=== PATIENT | female | born 1950 | race Caucasian/White ===

== ENCOUNTER 2016-10-26 20:05 | Inpatient (IN) | payer BC ==
--- NOTE | 2016-10-26 20:18 | PDOC ---
[id number] No Limitations - History of Present Illness Timing/Duration: 4-6 hours Associated Symptoms: reports: denies symptoms. denies: chest pain, cough, malaise, nausea/vomiting, shortness of breath <Raissa More - Last Filed: 10/26/16 22:21> <Frantz Kirk - Last Filed: 11/03/16 06:24> - General Chief Complaint: Edema Stated Complaint: PCP SENT/SWOLLEN CALF Time Seen by Provider: 10/26/16 20:13 Past History - Travel Traveled outside of the country in the last 30 days: No Close contact w/someone who was outside of country & ill: No - Past Medical History Cardiac Disorders: Yes Diabetes: Yes - Surgical History Cholecystectomy: Yes - Psycho/Social/Smoking Cessation Hx Anxiety: No Suicidal Ideation: No Smoking History: Never smoked Hx Alcohol Use: No <Raissa More - Last Filed: 10/26/16 22:21> <Frantz Kirk - Last Filed: 11/03/16 06:24> - Past Medical History Allergies/Adverse Reactions: Allergies Allergy/AdvReac Type Severity Reaction Status Date / Time No Known Allergies Allergy Verified 10/26/16 20:11 Home Medications: Ambulatory Orders Insulin Pump Cartridge 10 units SQ ASDIR 08/28/11 Clopidogrel Bisulfate [Plavix -] 75 mg PO DAILY 10/27/16 Dulaglutide [Trulicity] 0.75 mg WEEKLY 10/27/16 Meloxicam 15 mg PO DAILY 10/27/16 Nebivolol HCl [Bystolic] 10 mg PO DAILY 10/27/16 Ramipril 10 mg PO BID 10/27/16 Simvastatin 40 mg PO DAILY 10/27/16 Tiotropium [place] [Spiriva] 1 puff IH PRN PRN 10/27/16 Apixaban [Eliquis -] 5 mg PO BID #70 tablet 10/28/16 Clindamycin [Cleocin -] 300 mg PO Q6HPO #24 capsule 10/28/16 Review of Systems - Review of Systems Able to Perform ROS?: Yes Comments:: 10/26/16 20:19 CONSTITUTIONAL: Absent: fever, chills, diaphoresis, generalized weakness, malaise, loss of appetite HEENT: Absent: rhinorrhea, nasal congestion, throat pain, throat swelling, difficulty swallowing, mouth swelling, ear pain, eye pain, visual Changes CARDIOVASCULAR: Absent: chest pain, loss of consciousness, palpitations, irregular heart rate, peripheral edema RESPIRATORY: Absent: cough, shortness of breath, dyspnea with exertion, orthopnea, wheezing, stridor, hemoptysis GASTROINTESTINAL: Absent: abdominal pain, abdominal distension, nausea, vomiting, diarrhea, constipation, melena, hematochezia GENITOURINARY: Absent: dysuria, frequency, urgency, hesitancy, hematuria, flank pain, genital pain MUSCULOSKELETAL: LLE ant mid region; +swelling/neg pain, denies calf pain Absent: myalgia, arthralgia, joint swelling SKIN: Absent: rash, itching, pallor HEMATOLOGIC/IMMUNOLOGIC: Absent: easy bleeding, easy bruising, lymphadenopathy, frequent infections ENDOCRINE: Absent: unexplained weight gain, unexplained weight loss, heat intolerance, cold intolerance NEUROLOGIC: Absent: headache, focal weakness or paresthesias, dizziness, unsteady gait, seizure, mental status changes, bladder or bowel incontinence PSYCHIATRIC: Absent: anxiety, depression, suicidal or homicidal ideation, hallucinations. 10/26/16 20:21 Is the patient limited Mohawk proficient: No <Raissa More - Last Filed: 10/26/16 22:21> *Physical Exam - Vital Signs Last Vital Signs Temp Pulse Resp BP Pulse Ox 98 F 80 18 158/76 97 10/26/16 20:07 10/26/16 20:07 10/26/16 20:07 10/26/16 20:07 10/26/16 20:07 - Physical Exam Comments: 10/26/16 20:21 GENERAL: Well developed, well nourished. Awake and alert. No acute distress. HEENT: Normocephalic, atraumatic. PERRLA, EOMI. No conjunctival pallor. Sclera are non- icteric. Moist mucous membranes. Oropharynx is clear. NECK: Supple. Full ROM. No JVD. Carotid pulses 2+ and symmetric, without bruits. No thyromegaly. No lymphadenopathy. CARDIOVASCULAR: Regular rate and rhythm. No murmurs, rubs, or gallops. Distal pulses are 2+ and symmetric. PULMONARY: No evidence of respiratory distress. Lungs clear to auscultation bilaterally. No wheezing, rales or rhonchi. ABDOMINAL: Soft. Non-tender. Non-distended. No rebound or guarding. No organomegaly. Normoactive bowel sounds. MUSCULOSKELETAL Normal range of motion at all joints. No bony deformities or tenderness. No CVA tenderness. EXTREMITIES: No cyanosis. No clubbing. No edema. No calf tenderness. SKIN: Warm and dry. Normal capillary refill. No rashes. No jaundice. NEUROLOGICAL: Alert, awake, appropriate. Cranial nerves 2-12 intact. No deficits to light touch and temperature in face, upper extremities and lower extremities. No motor deficits in the in face, upper extremities and lower extremities. Normoreflexic in the upper and lower extremities. Normal speech. Toes are down- going bilaterally. Gait is normal without ataxia. PSYCHIATRIC: Cooperative. Good eye contact. Appropriate mood and affect. <Raissa More - Last Filed: 10/26/16 22:21> - Vital Signs Last Vital Signs Temp Pulse Resp BP Pulse Ox 98.2 F 68 18 106/63 98 10/28/16 10:00 10/28/16 10:00 10/28/16 14:00 10/28/16 10:00 10/28/16 14:00 <Frantz Kirk - Last Filed: 11/03/16 06:24> ED Treatment Course - LABORATORY CBC & Chemistry Diagram: 10/26/16 21:25 10/26/16 21:25 <Raissa More - Last Filed: 10/26/16 22:21> - LABORATORY CBC & Chemistry Diagram: 10/28/16 06:50 10/26/16 21:25 - ADDITIONAL ORDERS Additional order review: 10/26/16 21:25 RBC 5.09 MCV 88.6 MCHC 33.8 RDW 13.7 MPV 9.2 D Neutrophils % 64.1 Lymphocytes % 22.0 Monocytes % 10.7 H Eosinophils % 3.0 Basophils % 0.2 - Medications Given in the ED: ED Medications Discontinued Medications Generic Name Dose Route Start Last Admin Trade Name Freq PRN Reason Stop Dose Admin Acetaminophen 650 mg 10/27/16 11:28 10/28/16 02:50 Tylenol - PO 650 mg Q6H PRN Administration FEVER OR PAIN Atorvastatin Calcium 20 mg 10/26/16 23:25 10/27/16 00:21 Lipitor - PO 10/26/16 23:26 20 mg ONCE ONE Administration Clindamycin HCl 300 mg 10/27/16 00:00 10/28/16 12:18 Cleocin - PO 300 mg Q6HPO CONCHITA Administration Clopidogrel Bisulfate 75 mg 10/27/16 10:00 10/28/16 09:31 Plavix - PO 75 mg DAILY CONCHITA Administration Enoxaparin Sodium 100 mg 10/26/16 22:09 10/26/16 22:20 Lovenox - SQ 10/26/16 22:10 Not Given ONCE ONE Enoxaparin Sodium 120 mg 10/26/16 22:15 10/26/16 22:19 Lovenox - SQ 10/26/16 22:16 120 mg ONCE ONE Administration Enoxaparin Sodium 120 mg 10/27/16 10:00 10/28/16 09:32 Lovenox - SQ 120 mg BID CONCHITA Administration Nebivolol 10 mg 10/27/16 10:00 10/28/16 09:32 Bystolic - PO 10 mg DAILY CONCHITA Administration Ramipril 20 mg 10/27/16 10:00 10/28/16 09:31 Altace - PO 20 mg DAILY CONCHITA Administration <Frantz Kirk - Last Filed: 11/03/16 06:24> Medical Decision Making - Medical Decision Making 11/03/16 06:24 ED Attending note: I was available, involved in the case with the mid level provider as needed and in a limited capacity. <Frantz Kirk - Last Filed: 11/03/16 06:24> *DC/Admit/Observation/Transfer - Discharge Dispostion Admit: Yes <Raissa More - Last Filed: 10/26/16 22:21> <Frantz Kirk - Last Filed: 11/03/16 06:24> Diagnosis at time of Disposition: Deep vein thrombosis (DVT) - Discharge Dispostion Disposition: HOME - Prescriptions - Referrals Progress Note - Progress Note Progress Note: 66-year-old female with a past medical history complaining of left lower leg swelling/anterior mid erythema but denies any pain. Patient denies nausea/ vomiting, fever/chills, headache, dizziness, lightheadedness, chest pain, shortness of breath, abdominal pains, extremity numbness or tingling sensation. Patient noticed the redness and swelling 8 hours ago. Patient spoke to her PMD who referred her to the emergency department. 2035hrs\; Spoke to DR. De Jesus; states to admit to hospitalist if pt is in severe pain or +DVT 2107hrs: Spoke to Dr. 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 Daigle/hospitalist/ will admit 2216hrs: Dr. De Jesus notified <Raissa More - Last Filed: 10/26/16 22:21>
--- NOTE | 2016-10-26 20:23 | PDOC ---
[id number] 97 10/26/16 20:07 10/26/16 20:07 10/26/16 20:07 10/26/16 20:07 10/26/16 20:07 - Physical Exam Comments: 10/26/16 20:23 The patient was examined by [CITLALY More] under my direct supervision. I personally evaluated the patient. I concur with the above findings and the plan of care. ED Treatment Course - LABORATORY CBC & Chemistry Diagram: 10/28/16 06:50 10/26/16 21:25 *DC/Admit/Observation/Transfer Diagnosis at time of Disposition: Deep vein thrombosis (DVT) - Discharge Dispostion Disposition: HOME - Prescriptions
[2016-10-26 21:38] LABS: BASOPHIL 0.2 % (0-2.0); MCH 29.9 pg (25.7-33.7); MCHC 33.8 g/dl (32.0-36.0); MEAN CELL VOLUME 88.6 fl (80-96); MEAN PLT VOLUME 9.2 fl (7.5-11.1); NEUTROPHILS 64.1 % (42.8-82.8); PLATELET COUNT 178 K/MM3 (134-434); RDW 13.7 % (11.6-15.6); WHITE BLOOD COUNT 9.4 K/mm3 (4.0-10.0)
[2016-10-26 21:48] LABS: INR 1.06 (0.82-1.09); PROTHROMBIN TIME (PATIENT) 11.7 SEC (9.98-11.88)
[2016-10-26 21:59] LABS: ALBUMIN 3.5 g/dl (3.4-5.0); ALK PHOS 82 U/L (45-117); ANION GAP 6 (8-16); BILIRUBIN,TOTAL 0.3 mg/dL (0.2-1.0); CALCIUM 8.4 mg/dL (8.5-10.1); CO2 31 mmol/L (21-32); CREATININE 0.7 mg/dL (0.55-1.02); GLUCOSE,RANDOM 132 mg/dL (74-106); SGOT/AST 11 U/L (15-37); SGPT/ALT 17 U/L (12-78); TOT PROT 6.8 g/dl (6.4-8.2)
--- NOTE | 2016-10-26 22:10 | PN ---
<Reginald Daigle - Last Filed: 10/26/16 22:09> Teaching Attending Note Name of Resident: Denton Guadalupe ATTENDING PHYSICIAN STATEMENT I saw and evaluated the patient. I reviewed the resident's note and discussed the case with the resident. I agree with the resident's findings and plan as documented. SUBJECTIVE: OBJECTIVE: ASSESSMENT AND PLAN: <GemmaPilo - Last Filed: 10/26/16 23:34> Teaching Attending Note ATTENDING PHYSICIAN STATEMENT I saw and evaluated the patient. I reviewed the resident's note and discussed the case with the resident. I agree with the resident's findings and plan as documented. Imaging data and chart reviewed. SUBJECTIVE: 66-year-old female who has a significant past medical history of diabetes, hypertension, and hyperlipidemia who presented with left lower extremity swelling and erythema for 8 hours. The patient described the pain as burning and itchy in sensation. The patient reported that her pain is exacerbated by palpation becoming a 10/10 in severity. The patient stated that at baseline her lower left extremity is swollen secondary to a left ankle fracture 3 years ago. The patient denied any recent injuries or recent travel. OBJECTIVE: Vital Signs: Last Vital Signs Temp Pulse Resp BP Pulse Ox 98 F 80 18 158/76 98 10/26/16 20:07 10/26/16 20:07 10/26/16 20:07 10/26/16 20:07 10/26/16 20:29 Physical Exam: GEN: NAD HEENT: NCAT, PERRL CARD: RRR, S1 S2 RESP: CTAB ABD: NT, BWS x4 EXT: - (+)Lower left extremity non pitting edema 3x5 cm edema erythema and warmth also noted behind her left ankle Labs: CBCD WBC 9.4 K/mm3 (4.0-10.0) 10/26/16 21:25 RBC 5.09 M/mm3 (3.60-5.2) 10/26/16 21:25 Hgb 15.2 GM/dL (10.7-15.3) 10/26/16 21:25 Hct 45.1 % (32.4-45.2) 10/26/16 21:25 MCV 88.6 fl (80-96) 10/26/16 21:25 MCHC 33.8 g/dl (32.0-36.0) 10/26/16 21:25 RDW 13.7 % (11.6-15.6) 10/26/16 21:25 Plt Count 178 K/MM3 (134-434) 10/26/16 21:25 MPV 9.2 fl (7.5-11.1) D 10/26/16 21:25 CMP Sodium 141 mmol/L (136-145) 10/26/16 21:25 Potassium 3.9 mmol/L (3.5-5.1) 10/26/16 21:25 Chloride 104 mmol/L (98-107) 10/26/16 21:25 Carbon Dioxide 31 mmol/L (21-32) 10/26/16 21:25 Anion Gap 6 (8-16) L 10/26/16 21:25 BUN 21 mg/dL (7-18) H 10/26/16 21:25 Creatinine 0.7 mg/dL (0.55-1.02) 10/26/16 21:25 Creat Clearance w eGFR > 60 (>60) 10/26/16 21:25 Calcium 8.4 mg/dL (8.5-10.1) L 10/26/16 21:25 Total Bilirubin 0.3 mg/dL (0.2-1.0) 10/26/16 21:25 AST 11 U/L (15-37) L 10/26/16 21:25 ALT 17 U/L (12-78) 10/26/16 21:25 Alkaline Phosphatase 82 U/L (45-117) 10/26/16 21:25 Total Protein 6.8 g/dl (6.4-8.2) 10/26/16 21:25 Albumin 3.5 g/dl (3.4-5.0) 10/26/16 21:25 ASSESSMENT AND PLAN: 66-year-old female who has a past medical history of diabetes who presented with left lower extremity swelling and erythema. Found to have a right popliteal DVT 1. DVT- unprovoked -Continue lovenox 120 Q12H -Can consider Eliquis outpatient if insurance allows 2. Lower left extremity cellulitis -Clindomyocin 3. CAD -Continue SERENE -Continue Plavix -Continue beta vin 4. Hyperlipidemia -Continue with statin 5. Right knee pain-arthritis -Would hold Meloxicam 6. Diabetes -Continue insulin pump -Finger sticks Admit to observation Documentation prepared by Pilo Menendez, acting as medical collections representative for Dr. Regina Daigle MD.
[2016-10-26] MEDS ORDERED: ENOXAPARIN NA (PORCINE) 40 MG/0.4 ML DISP.SYRIN SQ ONE (22:15)
[2016-10-26] MEDS: ENOXAPARIN NA (PORCINE) 100 MG/1 ML DISP.SYRIN SQ ONE ×2 (22:19→22:20)
[2016-10-26] MEDS ORDERED: ENOXAPARIN NA (PORCINE) 100 MG/1 ML DISP.SYRIN SQ ONE (22:24)
[2016-10-26] MEDS ORDERED: ENOXAPARIN NA (PORCINE) 30 MG/0.3 ML DISP.SYRIN SQ ONE (22:24)
[2016-10-26] MEDS ORDERED: ATORVASTATIN CA 20 MG TABLET (FP) PO ONE (23:25)
--- NOTE | 2016-10-26 23:28 | HP ---
CHIEF COMPLAINT: leg swelling and pain PCP: Dr. Matti De Jesus (PCP); Dr. King (cardio); Dr. Schmidt (endocrine) HISTORY OF PRESENT ILLNESS: 66 y/o F w/PMH of HTN, HLD, CAD s/p stents x2, DM (on insulin pump), hx of cervical ca s/p hysterectomy, presents to ER with LLE swelling and pain since this morning. Pt called Dr. De Jesus and he told her to come to ER. She states pain and redness in LLE started all of a sudden this AM. Pain is 10/10 when palpated. She denies any travel history or extended periods of inactivity. 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 She denies any CP, SOB, abd pain, diarrhea, dysuria, palpitations. She denies any N/V/F/C currently. She also denies any trauma to her legs or any cuts or wounds on her legs. 3 months ago pt had a some burning pain in LLE and got an U /S done at her workplace office which she states was negative and was told to f/ u with a vascular surgeon but she has not seen one since. She felt somewhat light-headed earlier today when trying to get up while in the ER but states she has not eaten or drank much today. ER course was notable for: (1) U/S duplex B/L LE (2) Lovenox (3) Recent Travel: denies PAST MEDICAL HISTORY: DM, HTN, HLD, CAD (s/p 2 stents 2010, 2012), cervical ca. PAST SURGICAL HISTORY: cardiac stents x2 2010, 2012; cholecystectomy (10+ years ago); hysterectomy; L adrenalectomy Social History: Smoking: former smoker - smoked from ages [age] Alcohol: denies Drugs: denies Family History: Mother: DM Older brother: Cancer (unknown type) Allergies Penicillin as a child, does not know reaction HOME MEDICATIONS: Home Medications Medication Instructions Recorded Insulin Pump Cartridge 10 units SQ ASDIR 08/28/11 REVIEW OF SYSTEMS CONSTITUTIONAL: Absent: fever, chills, diaphoresis, generalized weakness, malaise, loss of appetite, weight change HEENT: Absent: rhinorrhea, nasal congestion, throat pain, throat swelling, difficulty swallowing, mouth swelling, ear pain, eye pain, visual changes CARDIOVASCULAR: Absent: chest pain, syncope, palpitations, irregular heart rate, lightheadedness , peripheral edema RESPIRATORY: Absent: cough, shortness of breath, dyspnea with exertion, orthopnea, wheezing, stridor, hemoptysis GASTROINTESTINAL: Absent: abdominal pain, abdominal distension, nausea, vomiting, diarrhea, constipation, melena, hematochezia GENITOURINARY: Absent: dysuria, frequency, urgency, hesitancy, hematuria, flank pain, genital pain MUSCULOSKELETAL: Absent: myalgia, arthralgia, joint swelling, back pain, neck pain SKIN: LLE redness, swelling Absent: rash, itching, pallor HEMATOLOGIC/IMMUNOLOGIC: Absent: easy bleeding, easy bruising, lymphadenopathy, frequent infections ENDOCRINE: Absent: unexplained weight gain, unexplained weight loss, heat intolerance, cold intolerance NEUROLOGIC: Absent: headache, focal weakness or paresthesias, dizziness, unsteady gait, seizure, mental status changes, bladder or bowel incontinence PSYCHIATRIC: Absent: anxiety, depression, suicidal or homicidal ideation, hallucinations. PHYSICAL EXAMINATION Vital Signs - 24 hr 10/26/16 10/26/16 10/26/16 20:07 20:29 22:41 Temperature 98 F 98.3 F Pulse Rate 80 Pulse Rate [ 87 Left Radial] Respiratory 18 20 Rate Blood Pressure 158/76 Blood Pressure 140/70 [Left Arm] O2 Sat by Pulse 97 98 98 Oximetry (%) GENERAL: Awake, alert, and fully oriented, in no acute distress. HEAD: Normal with no signs of trauma. EYES: extraocular movements intact, sclera anicteric, conjunctiva clear. No lid lag. EARS, NOSE, THROAT: Ears normal, nares patent, Moist mucous membranes. NECK: Normal range of motion LUNGS: Breath sounds equal, clear to auscultation bilaterally. No wheezes, and no crackles. No accessory muscle use. HEART: Distant heart sounds, Regular rate and rhythm, normal S1 and S2 without murmur, rub or gallop. ABDOMEN: Soft, obese, nontender, not distended, normoactive bowel sounds, no guarding, no rebound, no masses. No hepatomegaly or splenomegaly. LOWER EXTREMITIES: LLE redness from mid tibia/mid calf down to distal tibia. Tender to palpation. L calf soreness with palpation. B/L non-pitting edema. RLE no tenderness NEUROLOGICAL: Normal speech. Gait not observed. PSYCHIATRIC: Cooperative. Good eye contact. Appropriate mood and affect. SKIN: Warm, dry, normal turgor, LLE redness from mid tibia/mid calf down to distal tibia. Laboratory Results - last 24 hr 10/26/16 10/26/16 10/26/16 21:25 21:25 21:25 WBC 9.4 RBC 5.09 Hgb 15.2 Hct 45.1 MCV 88.6 MCHC 33.8 RDW 13.7 Plt Count 178 MPV 9.2 D Neutrophils % 64.1 Lymphocytes % 22.0 Monocytes % 10.7 H Eosinophils % 3.0 Basophils % 0.2 INR 1.06 Sodium 141 Potassium 3.9 Chloride 104 Carbon Dioxide 31 Anion Gap 6 L BUN 21 H Creatinine 0.7 Creat Clearance w eGFR > 60 Random Glucose 132 H D Calcium 8.4 L Total Bilirubin 0.3 AST 11 L ALT 17 Alkaline Phosphatase 82 Total Protein 6.8 Albumin 3.5 Imaging Duplex U/S B/L LE: +DVT R popliteal as per prelim report ASSESSMENT/PLAN: 66 y/o F w/PMH of HTN, HLD, CAD s/p stents x2, DM (on insulin pump), hx of cervical ca s/p hysterectomy, presents to ER with LLE swelling and pain since this morning. Found to have R popliteal DVT. -R popliteal DVT, unprovoked -U/S B/L LE: prelim read: +DVT R popliteal -lovenox 120 mg SQ bid -eliquis as outpatient if covered by insurance -LLE cellulitis -clinda 300mg PO q6h -DM -c/w insulin pump from home -BGMs ACHS -HTN -c/w bystolic 10 mg -c/w ramipril 20 mg qd -CAD -atorvastatin [address] of simvastatin 40 mg qhs -c/w clopidogrel 75 mg qd -FEN -no fluids -electrolytes wnl -sodium controlled diabetic diet -Dispo: -monitor in obs, if eliquis approved send home w/eliquis and PO abx for LLE cellulitis Visit type - Emergency Visit Emergency Visit: Yes ED Registration Date: 10/26/16 Care time: The patient presented to the Emergency Department on the above date and was hospitalized for further evaluation of their emergent condition. - New Patient This patient is new to me today: Yes Date on this admission: 10/29/16 - Critical Care Critical Care patient: No
[2016-10-27] MEDS: CLINDAMYCIN HCL 150 MG CAPSULE (FP) PO SCH ×5 (00:22→23:24)
[2016-10-27 01:05] VITALS: BMI 41.3
[2016-10-27 08:54] LABS: MCH 29.8 pg (25.7-33.7); MCHC 33.2 g/dl (32.0-36.0); MEAN CELL VOLUME 89.7 fl (80-96); MEAN PLT VOLUME 9.1 fl (7.5-11.1); PLATELET COUNT 157 K/MM3 (134-434); RDW 13.3 % (11.6-15.6); WHITE BLOOD COUNT 7.7 K/mm3 (4.0-10.0)
--- NOTE | 2016-10-27 09:05 | PN ---
Progress Note, Physician - Current Medication List Current Medications: Active Medications Clindamycin HCl (Cleocin -) 300 mg PO Q6HPO [facility] Last Admin: 10/27/16 06:14 Dose: 300 mg Clopidogrel Bisulfate (Plavix -) 75 mg PO DAILY [facility] Enoxaparin Sodium (Lovenox -) 120 mg SQ BID [facility] Nebivolol (Bystolic -) 10 mg PO DAILY [facility] Ramipril (Altace -) 20 mg PO DAILY [facility] - Objective Vital Signs: Vital Signs Temperature 97.8 F 10/27/16 06:14 Pulse Rate 71 10/27/16 06:14 Respiratory Rate 20 10/27/16 06:14 Blood Pressure 106/42 10/27/16 06:14 O2 Sat by Pulse Oximetry (%) 94 L 10/27/16 01:14 Eyes: Yes: WNL, Conjunctiva Clear HENT: Yes: WNL, Atraumatic, Normocephalic Neck: Yes: WNL, Supple, Trachea Midline Cardiovascular: Yes: WNL, Regular Rate and Rhythm Respiratory: Yes: WNL, Regular, CTA Bilaterally Gastrointestinal: Yes: WNL, Normal Bowel Sounds Musculoskeletal: Yes: WNL Extremities: Yes: Erythema (right lower leg; tenderness of right lower leg) Edema: No Integumentary: Yes: WNL Neurological: Yes: WNL, Alert, Oriented ...Motor Strength: WNL Psychiatric: Yes: WNL Labs: CBC, BMP 10/27/16 06:50 INR, PTT INR 1.06 (0.82-1.09) 10/26/16 21:25 Impression/Plan Impression/Plan: 66 year old woman DM, HTN, HLD, CAD (s/p 2 stents 2010, 2011), cervical ca admitted for DVT DVT -started on full dose lovenox -call insurance company to get prior authorization for NOAC if possible -has history of cervical CA, will call [employer]CH[employer] to get better history as recurrence might be cause for DVT Cellulitis -erythema improved overnight -cont clindamycin Visit type - Emergency Visit Emergency Visit: Yes ED Registration Date: 10/26/16 Care time: The patient presented to the Emergency Department on the above date and was hospitalized for further evaluation of their emergent condition. - New Patient This patient is new to me today: Yes Date on this admission: 10/27/16 - Critical Care Critical Care patient: No
[2016-10-27] MEDS ORDERED: ACETAMINOPHEN 650 MG/20.3 ML ORAL SOLUTION (CUPS) PO PRN (09:10)
[2016-10-27 09:20] LABS: INR 1.12 (0.82-1.09); PROTHROMBIN TIME (PATIENT) 12.4 SEC (9.98-11.88)
[2016-10-27] MEDS ORDERED: PT OWN MED DRAWER 7, Y5N ONE (09:25)
[2016-10-27] MEDS: CLOPIDOGREL BISULFATE 75 MG TABLET (FP) PO SCH (09:27)
[2016-10-27] MEDS: RAMIPRIL 5 MG CAPSULE (FP) PO SCH (09:27)
[2016-10-27] MEDS: NEBIVOLOL 10 MG TABLET (FP) PO SCH (09:28)
--- NOTE | 2016-10-27 11:33 | EKG ---
Test Reason : Blood Pressure : / mmHG Vent. Rate : 090 BPM Atrial Rate : 090 BPM P-R Int : 192 ms QRS Dur : 090 ms QT Int : 364 ms P-R-T Axes : 051 005 019 degrees QTc Int : 445 ms NORMAL SINUS RHYTHM INFERIOR INFARCT , AGE UNDETERMINED CANNOT RULE OUT ANTERIOR INFARCT , AGE UNDETERMINED ABNORMAL ECG WHEN COMPARED WITH ECG OF 28-AUG-2011 09:14, NO SIGNIFICANT CHANGE WAS FOUND Confirmed by TARIK GILLESPIE MD ([id number]) on 10/27/2016 11:33:11 AM Referred By: Confirmed By:TARIK GILLESPIE MD
[2016-10-27] MEDS: ACETAMINOPHEN 325 MG TABLET (FP) PO PRN (11:45)
[2016-10-27] MEDS: ENOXAPARIN NA (PORCINE) 120 MG/0.8 ML DISP.SYRIN SQ SCH ×2 (12:00→21:43)
[2016-10-28] MEDS: ACETAMINOPHEN 325 MG TABLET (FP) PO PRN (02:50)
[2016-10-28] MEDS: CLINDAMYCIN HCL 150 MG CAPSULE (FP) PO SCH ×2 (06:23→12:18)
[2016-10-28 08:43] LABS: MCH 29.6 pg (25.7-33.7); MCHC 33.6 g/dl (32.0-36.0); MEAN PLT VOLUME 9.4 fl (7.5-11.1); PLATELET COUNT 183 K/MM3 (134-434); RDW 13.3 % (11.6-15.6); WHITE BLOOD COUNT 8.1 K/mm3 (4.0-10.0)
[2016-10-28] MEDS ORDERED: PT OWN MED DRAWER 7, Y5N ONE (09:19)
[2016-10-28] MEDS: CLOPIDOGREL BISULFATE 75 MG TABLET (FP) PO SCH (09:31)
[2016-10-28] MEDS: RAMIPRIL 5 MG CAPSULE (FP) PO SCH (09:31)
[2016-10-28] MEDS: ENOXAPARIN NA (PORCINE) 120 MG/0.8 ML DISP.SYRIN SQ SCH (09:32)
[2016-10-28] MEDS: NEBIVOLOL 10 MG TABLET (FP) PO SCH (09:32)
--- NOTE | 2016-10-28 10:13 | PN ---
Physical Exam: SUBJECTIVE: Patient seen and examined OBJECTIVE: Vital Signs Period Temp Pulse Resp BP Sys/Bustos Pulse Ox Last 24 Hr 98.4 F-98.9 F 62-70 18-20 116-123/60-73 93-95 GENERAL: The patient is awake, alert, and fully oriented, in no acute distress. HEAD: Normal with no signs of trauma. EYES: PERRL, extraocular movements intact, sclera anicteric, conjunctiva clear. No ptosis. ENT: Ears normal, nares patent, oropharynx clear without exudates, moist mucous membranes. NECK: Trachea midline, full range of motion, supple. LUNGS: Breath sounds equal, clear to auscultation bilaterally, no wheezes, no crackles, no accessory muscle use. HEART: Regular rate and rhythm, S1, S2 without murmur, rub or gallop. ABDOMEN: Soft, nontender, nondistended, normoactive bowel sounds, no guarding, no rebound, no hepatosplenomegaly, no masses. EXTREMITIES: 2+ pulses, warm, well-perfused, no edema. NEUROLOGICAL: Cranial nerves II through XII grossly intact. Normal speech, gait not observed. PSYCH: Normal mood, normal affect. SKIN: Warm, dry, normal turgor, no rashes or lesions noted Laboratory Results - last 24 hr 10/27/16 10/27/16 10/27/16 11:49 17:21 21:12 WBC RBC Hgb Hct MCV MCHC RDW Plt Count MPV PTT (Actin FS) POC Glucometer 129 103 111 10/28/16 10/28/16 10/28/16 05:39 06:50 06:50 WBC 8.1 RBC 5.25 H Hgb 15.5 H Hct 46.2 H MCV 88.0 MCHC 33.6 RDW 13.3 Plt Count 183 MPV 9.4 PTT (Actin FS) 36.5 H POC Glucometer 120 Active Medications Generic Name Dose Route Start Last Admin Trade Name Freq PRN Reason Stop Dose Admin Acetaminophen 650 mg 10/27/16 11:28 10/28/16 02:50 Tylenol - PO 650 mg Q6H PRN Administration FEVER OR PAIN Clindamycin HCl 300 mg 10/27/16 00:00 10/28/16 06:23 Cleocin - PO 300 mg Q6HPO CONCHITA Administration Clopidogrel Bisulfate 75 mg 10/27/16 10:00 10/28/16 09:31 Plavix - PO 75 mg DAILY CONCHITA Administration Enoxaparin Sodium 120 mg 10/27/16 10:00 10/28/16 09:32 Lovenox - SQ 120 mg BID CONCHITA Administration Nebivolol 10 mg 10/27/16 10:00 10/28/16 09:32 Bystolic - PO 10 mg DAILY CONCHITA Administration Ramipril 20 mg 10/27/16 10:00 10/28/16 09:31 Altace - PO 20 mg DAILY CONCHITA Administration ASSESSMENT/PLAN:
[2016-10-28 10:51] VITALS: BP 106/63; PULSE 68; TEMP 98.2
--- NOTE | 2016-10-28 14:11 | DS ---
Physical Examination Vital Signs: Vital Signs Temperature 98.2 F 10/28/16 10:00 Pulse Rate 68 10/28/16 10:00 Respiratory Rate 18 10/28/16 10:00 Blood Pressure 106/63 10/28/16 10:00 O2 Sat by Pulse Oximetry (%) 93 L 10/28/16 06:56 Labs: CBC, BMP 10/28/16 06:50 Discharge Summary Reason For Visit: DVT Hospital Course: 66 y/o F w/PMH of HTN, HLD, CAD s/p stents x2, DM (on insulin pump), hx of cervical ca s/p hysterectomy, presents to ER with LLE swelling and pain since this morning. Pt called Dr. De Jesus and he told her to come to ER. She states pain and redness in LLE started all of a sudden this AM. Pain is 10/10 when palpated. She denies any travel history or extended periods of inactivity. 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 She denies any CP, SOB, abd pain, diarrhea, dysuria, palpitations. She denies any N/V/F/C currently. She also denies any trauma to her legs or any cuts or wounds on her legs. -Pt was found to have DVT on sonogram and was admitted to medicine service -was treated with full dose lovenox during hospital stay -is being discharged on eliquis for full dose anticoagulation -has cellulitis on LLE and will be discharged on PO clindamycin I spent greater than 40 minutes preparing this discharge - Instructions Referrals: Matti De eJsus MD [Primary Care Provider] - 1 Week - Home Medications Comprehensive Discharge Medication List: Ambulatory Orders Insulin Pump Cartridge 10 units SQ ASDIR 08/28/11 Clopidogrel Bisulfate [Plavix -] 75 mg PO DAILY 10/27/16 Dulaglutide [Trulicity] 0.75 mg WEEKLY 10/27/16 Meloxicam 15 mg PO DAILY 10/27/16 Nebivolol HCl [Bystolic] 10 mg PO DAILY 10/27/16 Ramipril 10 mg PO BID 10/27/16 Simvastatin 40 mg PO DAILY 10/27/16 Tiotropium [place] [Spiriva] 1 puff IH PRN PRN 10/27/16 Apixaban [Eliquis -] 5 mg PO BID #70 tablet 10/28/16 This patient is new to me today: No Emergency Visit: Yes ED Registration Date: 10/26/16 Care time: The patient presented to the Emergency Department on the above date and was hospitalized for further evaluation of their emergent condition. Critical Care patient: No - Discharge Referral Referred to [facility] Med P.C.: No
== END 2016-10-28 14:21 | disposition home or self-care (01) | DRG 300 ==
LOC: JER 20:05 → JERBED 22:21 → J5S 23:08
PROVIDERS: ADMIT Internal Medicine; ATTEND Internal Medicine
DX: I82.431 Acute embolism and thrombosis of right popliteal vein (principal); L03.116 Cellulitis of left lower limb; E11.9 Type 2 diabetes mellitus without complications; I10 Essential (primary) hypertension; I25.10 Atherosclerotic heart disease of native coronary artery without angina pectoris; Z98.61 Coronary angioplasty status; E78.5 Hyperlipidemia, unspecified; Z79.4 Long term (current) use of insulin
CPT/HCPCS: 36415; 71020-TC; 80053; 85025; 85027; 85610; 85730; 93005; 93010; 93970-TC; 99284-25

== ENCOUNTER 2018-07-15 09:09 | Emergency (ER) | payer BC ==
[2018-07-15 09:19] VITALS: BMI 40.1
[2018-07-15] MEDS ORDERED: DIPHTH,PERTUSS(ACELL),TET 0.5 ML DISP.SYRIN IM ONE ×2 (10:05→10:44)
--- NOTE | 2018-07-15 10:05 | PDOC ---
History of Present Illness - General Chief Complaint: Injury Stated Complaint: FALL&HEAD TRAUMA,ON PLAVIX Time Seen by Provider: 07/15/18 09:23 - History of Present Illness Initial Comments: 07/15/18 10:00 The patient is a 67 year old female with a significant past medical history of DM, HTN, CAD s/p 2 stents on plavix, who presents to the emergency department s/ p fall yesterday. The patient reports that she tripped over a curb last night and fell, hitting her head on the ground. The patient reports that when she fell she hit the left side of her face and jaw. She denies any loc. The patient reports that she was helped up off the ground and was able to ambulate afterwards. She reports feeling fine immediately after the fall. However, when she woke up this morning she noticed pain in her L wrist and L chest wall. Pt states that her chest pain is located just below her L armpit, is reproducible with palpation, and worse with deep inspiration. The patient denies any other symptoms. Denies SOB. She denies any headache, weakness, tingling sensation or other numbness sensation. Past History - Past Medical History Allergies/Adverse Reactions: Allergies Allergy/AdvReac Type Severity Reaction Status Date / Time amoxicillin Allergy Verified 07/15/18 09:13 Penicillins Allergy Verified 07/15/18 09:13 Home Medications: Ambulatory Orders Insulin Pump Cartridge 10 units SQ ASDIR 08/28/11 Clopidogrel Bisulfate [Plavix -] 75 mg PO DAILY 10/27/16 Dulaglutide [Trulicity] 0.75 mg WEEKLY 10/27/16 Meloxicam 15 mg PO DAILY 10/27/16 Nebivolol HCl [Bystolic] 10 mg PO DAILY 10/27/16 Ramipril 10 mg PO BID 10/27/16 Simvastatin 40 mg PO DAILY 10/27/16 Tiotropium [place] [Spiriva] 1 puff IH PRN PRN 10/27/16 Apixaban [Eliquis -] 5 mg PO BID #70 tablet 10/28/16 Cyclobenzaprine HCl [Flexeril 10 mg] 10 mg PO TID #30 tablet 01/19/18 Oxycodone HCl/Acetaminophen [Percocet 5/325 -] 1 tab PO Q6H #10 tablet MDD 6 06/28 Cardiac Disorders: Yes COPD: Yes Diabetes: Yes - Surgical History Cholecystectomy: Yes - Suicide/Smoking/Psychosocial Hx Smoking History: Former smoker Have you smoked in the past 12 months: No Information on smoking cessation initiated: No Hx Alcohol Use: No Drug/Substance Use Hx: No Review of Systems - Review of Systems Comments:: 07/15/18 10:03 "GENERAL/CONSTITUTIONAL: No fever or chills. No weakness. HEAD, EYES, EARS, NOSE AND THROAT: No change in vision. No ear pain or discharge. No sore throat. CARDIOVASCULAR:(+) L chest wall pain. No shortness of breath, no loss of consciousness RESPIRATORY: No cough, wheezing, or hemoptysis. GASTROINTESTINAL: No nausea, vomiting, diarrhea or constipation. GENITOURINARY: No dysuria, frequency, or change in urination. MUSCULOSKELETAL: (+)left wrist pain, no neck/shoulder pain. No back pain. SKIN: No rash NEUROLOGIC: No vertigo, no change in strength/sensation. ENDOCRINE: No increased thirst. No abnormal weight change. HEMATOLOGIC/LYMPHATIC: No anemia, easy bleeding, or history of blood clots. ALLERGIC/IMMUNOLOGIC: No hives or skin allergy. *Physical Exam - Vital Signs Last Vital Signs Temp Pulse Resp BP Pulse Ox 98.5 F 64 16 179/80 H 98 07/15/18 09:13 07/15/18 09:13 07/15/18 09:13 07/15/18 09:13 07/15/18 09:13 - Physical Exam Comments: 07/15/18 10:03 GENERAL: Awake, alert, and fully oriented, in no acute distress. HEAD: + small abrasion to L mosque EYES: PERRLA, EOMI, sclera anicteric, conjunctiva clear ENT: Auricles normal inspection, hearing grossly normal, nares patent, oropharynx clear without exudates. Moist mucosa NECK: Nontender, no stepoffs, Normal ROM, supple, no lymphadenopathy, JVD, or masses LUNGS: Breath sounds equal, clear to auscultation bilaterally. No wheezes, and no crackles HEART: Regular rate and rhythm, normal S1 and S2, no murmurs, rubs or gallops CHEST: + TTP over L anterior chest wall, no crepitus ABDOMEN: Soft, nontender, normoactive bowel sounds. No guarding, no rebound. No masses EXTREMITIES: + TTP over L distal radius, no deformity, Normal range of motion, no edema. No clubbing or cyanosis. NEUROLOGICAL: Cranial nerves II through XII intact. 5/5 strength and sensation in all extremities, Normal speech, normal gait, normal cerebellar function SKIN: Warm, Dry, normal turgor, no rashes or lesions noted. Moderate Sedation - Procedure Monitoring Vital Signs: Procedure Monitoring Vital Signs Temperature 98.5 F 07/15/18 09:13 Pulse Rate 64 07/15/18 09:13 Respiratory Rate 16 07/15/18 09:13 Blood Pressure 179/80 H 07/15/18 09:13 O2 Sat by Pulse Oximetry (%) 98 07/15/18 09:13 Procedures - Splinting Splint Location: Left: Wrist Hand-Made Type: orthoglass Splint Type: Yes: Thumb Spica Post-Proc Neuro Vasc Exam: normal Wu Bandage: yes, 2" Complications: No ED Treatment Course - LABORATORY CBC & Chemistry Diagram: 07/15/18 10:10 07/15/18 10:10 - RADIOLOGY Radiology Studies Ordered: Category Date Time Status CERVICAL SPINE CT W/O CONTR [CT] Stat CT Scan 07/15/18 09:[address] WITHOUT CONTRAST [CT] Stat CT Scan 07/15/18 09:[address] WITHOUT CONTRAST [CT] Stat CT Scan 07/15/18 09:39 Ordered WRIST W/HAND-LEFT* [RAD] Stat Radiology 07/15/18 09:40 Ordered - Medications Given in the ED: ED Medications Discontinued Medications Generic Name Dose Route Start Last Admin Trade Name Freq PRN Reason Stop Dose Admin Oxycodone/Acetaminophen 1 combo 07/15/18 09:40 07/15/18 09:51 Percocet 5/325 - PO 07/15/18 09:41 1 combo ONCE ONE Administration Medical Decision Making - Medical Decision Making 07/15/18 10:04 67 F with mechanical fall last night. Now with pain to L wrist and L chest wall. Pt also suffered headstrike and is on plavix. Will r/o ICH with CT. Pt with no neuro deficits. Mild TTP over L distal radius as well as L chest wall tenderness. Otherwise benign exam. - CT head/facial bones/c-spine/chest - XR L wrist - Pain control 07/15/18 11:50 EKG and labs wnl, trop negative, low suspicion for ACS Awaiting XR and CT reads 07/15/18 12:52 CTs unremarkable XR read as negative However, pt with significant tenderness. suspect occult fx. Will splint and give ortho f/u 07/15/18 13:14 Pt placed in thumb spica Pt is well appearing, with normal vitals. Clinically stable for DC at this time. I discussed the physical exam findings, ancillary test results and final diagnoses with the patient. I answered all of the patient's questions. The patient was satisfied with the care received and felt comfortable with the discharge plan and treatment plan. The patient agrees to follow up with the primary care physician within 24-72 hours. *DC/Admit/Observation/Transfer Diagnosis at time of Disposition: Distal radius fracture - Discharge Dispostion Disposition: HOME - Referrals Referrals: Matti De Jesus MD [Primary Care Provider] - Jan Raymond MD [Staff Physician] - - Patient Instructions Printed Discharge Instructions: DI for Wrist Fracture Additional Instructions: You may have a fracture of your wrist. Keep the splint on until you are able to see an orthopedic surgeon. Call the number provided to make an appointment within 1 week. If you experience worsening pain, swelling, or any other concerning symptoms, return to the ER immediately. Your CT scan showed an enlarged thyroid and a lung nodule. Please follow up with your primary doctor to have these further evaluated. You also need to have your blood pressure re-checked by your primary doctor, as it was slightly elevated today. Uncontrolled blood pressure can eventually lead to kidney disease, heart disease, other serious illness, disability, or even . - Post Discharge Activity Forms/Work/School Notes: Back to Work - Attestations Physician Attestion: 07/15/18 12:54 I, Dr. Jan Basilio MD, attest that this document has been prepared under my direction and personally reviewed by me in its entirety. I further attest, that it accurately reflects all work, treatment, procedures and medical decision -making performed by me.
[2018-07-15 10:20] LABS: BASO % 0.7 % (0-2.0); EOS % 2.4 % (0-4.5); HEMATOCRIT 42.7 % (32.4-45.2); HEMOGLOBIN 15.2 GM/dL (10.7-15.3); LYMPH % 16.8 % (8-40); MCHC 35.6 g/dl (32.0-36.0); MEAN CELL VOLUME 89.8 fl (80-96); MEAN PLT VOLUME 9.2 fl (7.5-11.1); MONO % 8.2 % (3.8-10.2); NEUT % 71.9 % (42.8-82.8); PLATELET COUNT 200 K/MM3 (134-434); RBC 4.76 M/mm3 (3.60-5.2); RDW 13.6 % (11.6-15.6)
[2018-07-15 10:51] LABS: ALBUMIN 3.2 g/dl (3.4-5.0); ALK PHOS 98 U/L (45-117); ANION GAP 4 MMOL/L (8-16); BILIRUBIN,TOTAL 0.5 mg/dL (0.2-1); BLOOD UREA NITROGEN 7 mg/dL (7-18); CALCIUM 8.1 mg/dL (8.5-10.1); CHLORIDE 101 mmol/L (98-107); CO2 35 mmol/L (21-32); CREATININE 0.7 mg/dL (0.55-1.3); GLUCOSE,RANDOM 154 mg/dL (74-106); POTASSIUM 3.7 mmol/L (3.5-5.1); SGOT/AST 12 U/L (15-37); SGPT/ALT 12 U/L (13-61); SODIUM 141 mmol/L (136-145); TOT PROT 6.4 g/dl (6.4-8.2)
--- NOTE | 2018-07-15 12:45 | EKG ---
Test Reason : Blood Pressure : / mmHG Vent. Rate : 060 BPM Atrial Rate : 060 BPM P-R Int : 180 ms QRS Dur : 094 ms QT Int : 458 ms P-R-T Axes : -09 017 049 degrees QTc Int : 458 ms NORMAL SINUS RHYTHM NORMAL ECG WHEN COMPARED WITH ECG OF 26-OCT-2016 21:52, VENT. RATE HAS DECREASED BY 30 BPM CRITERIA FOR INFERIOR INFARCT ARE NO LONGER PRESENT Confirmed by JACOB LAW, MEGHAN ([id number]) on 07/15/2018 12:44:33 PM Referred By: Confirmed By:MEGHAN JAMES MD
[2018-07-15 13:10] VITALS: BP 154/68; PULSE 54; TEMP 98.1
== END 2018-07-15 13:46 | disposition home or self-care (01) ==
LOC: JER 09:09
PROC: 2W3DX1Z Immobilization of Left Lower Arm using Splint (ICD-10-PCS; principal; 2018-07-15)
DX: S52.592A Other fractures of lower end of left radius, initial encounter for closed fracture (principal); W10.1XXA Fall (on)(from) sidewalk curb, initial encounter; Y93.89 Activity, other specified; Y92.480 Sidewalk as the place of occurrence of the external cause; Y99.8 Other external cause status; I25.10 Atherosclerotic heart disease of native coronary artery without angina pectoris; I10 Essential (primary) hypertension; Z95.5 Presence of coronary angioplasty implant and graft; Z79.01 Long term (current) use of anticoagulants; E11.9 Type 2 diabetes mellitus without complications; Z79.4 Long term (current) use of insulin; Z96.41 Presence of insulin pump (external) (internal)
CPT/HCPCS: 36415; 70450-TC; 70486-TC; 71250-TC; 72125-TC; 73110-TC-LR-FY; 73130-TC-LT-FY; 80053; 82550; 84484; 85025; 93005; 93010; 99284-25

== ENCOUNTER 2018-09-20 14:10 | Emergency (ER) | payer BC ==
[2018-09-20 14:47] VITALS: BP 190/94; PULSE 78; TEMP 98.7; BMI 39.5
--- NOTE | 2018-09-20 15:04 | PDOC ---
History of Present Illness - General History Source: Patient Exam Limitations: No Limitations - History of Present Illness Initial Comments: 09/20/18 15:38 The patient is a 68 year old female with a significant past medical history of DM, DVT, HTN, CAD s/p 2 stents on plavix, who presents to the ED for abnormal lab results. 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 She states she was put on potassium supplement pills (20mg, twice a day) last month. Upon arrival to the ED, patient has no complaints. Denies fever or chills. Denies lightheadedness or headache. Denies chest pain or shortness of breath. Denies abdominal pain, nausea, vomiting, or diarrhea. Denies change in urinary output. Denies any other symptoms. 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 Edocrinologist: Roxana <Bettina Frazier - Last Filed: 09/20/18 15:38> <Hector Rosas - Last Filed: 09/20/18 18:53> - General Chief Complaint: Revisit, Lab Variance Stated Complaint: LOW POTASSIUM Time Seen by Provider: 09/20/18 15:04 Past History <Bettina Frazier - Last Filed: 09/20/18 15:38> - Past Medical History Cardiac Disorders: Yes (STENT X2) COPD: Yes Diabetes: Yes HTN: Yes Hypercholesterolemia: Yes - Surgical History Cardiac Surgery: Yes (STENT X2) Cholecystectomy: Yes - Suicide/Smoking/Psychosocial Hx Smoking History: Never smoked Have you smoked in the past 12 months: No Hx Alcohol Use: No Drug/Substance Use Hx: No <Hector Rosas - Last Filed: 09/20/18 18:53> - Past Medical History Allergies/Adverse Reactions: Allergies Allergy/AdvReac Type Severity Reaction Status Date / Time amoxicillin Allergy Verified 09/20/18 14:50 Penicillins Allergy Verified 09/20/18 14:50 Home Medications: Ambulatory Orders Insulin Pump Cartridge 10 units SQ ASDIR 08/28/11 Clopidogrel Bisulfate [Plavix -] 75 mg PO HS 10/27/16 Dulaglutide [Trulicity] 0.75 mg SQ WEEKLY 10/27/16 Nebivolol HCl [Bystolic] 10 mg PO HS 10/27/16 Tiotropium [place] [Spiriva] 1 puff IH PRN PRN 10/27/16 Meloxicam 15 mg PO BID PRN 09/20/18 Mifepristone [Korlym] 600 mg PO DAILY 09/20/18 Potassium Chloride [K-Dur -] 40 meq PO DAILY 09/20/18 Rosuvastatin [Crestor -] 40 mg PO HS 09/20/18 Review of Systems - Review of Systems Able to Perform ROS?: Yes Comments:: 09/20/18 15:38 CONSTITUTIONAL: Absent: fever, chills, diaphoresis, generalized weakness, malaise, loss of appetite HEENT: Absent: rhinorrhea, nasal congestion, throat pain, throat swelling, difficulty swallowing, mouth swelling, ear pain, eye pain, visual Changes CARDIOVASCULAR: Absent: chest pain, syncope, palpitations, irregular heart rate, lightheadedness , peripheral edema RESPIRATORY: Absent: cough, shortness of breath, dyspnea with exertion, orthopnea, wheezing, stridor, hemoptysis GASTROINTESTINAL: Absent: abdominal pain, abdominal distension, nausea, vomiting, diarrhea, constipation, melena, hematochezia GENITOURINARY: Absent: dysuria, frequency, urgency, hesitancy, hematuria, flank pain, genital pain MUSCULOSKELETAL: Absent: myalgia, arthralgia, joint swelling SKIN: Absent: rash, itching, pallor HEMATOLOGIC/IMMUNOLOGIC: + low potassium levels Absent: easy bleeding, easy bruising, lymphadenopathy, frequent infections ENDOCRINE: Absent: unexplained weight gain, unexplained weight loss, heat intolerance, cold intolerance NEUROLOGIC: Absent: headache, focal weakness or paresthesias, dizziness, unsteady gait, seizure, mental status changes, bladder or bowel incontinence PSYCHIATRIC: Absent: anxiety, depression, suicidal or homicidal ideation, hallucinations. All Other Systems: Reviewed and Negative <Bettina Frazier - Last Filed: 09/20/18 15:38> *Physical Exam - Vital Signs Last Vital Signs Temp Pulse Resp BP Pulse Ox 98.7 F 78 17 190/94 H 96 09/20/18 14:32 09/20/18 14:32 09/20/18 14:32 09/20/18 14:32 09/20/18 14:32 - Physical Exam Comments: 09/20/18 15:38 GENERAL: + Morbidly obese. Skin of the face was dark and rudey in appearance Well nourished. Awake and alert. No acute distress. HEENT: Normocephalic, atraumatic. PERRLA, EOMI. No conjunctival pallor. Sclera are non- icteric. Moist mucous membranes. Oropharynx is clear. NECK: Supple. Full ROM. No JVD. Carotid pulses 2+ and symmetric, without bruits. No thyromegaly. No lymphadenopathy. CARDIOVASCULAR: + 2/6 systolic ejection murmur at the left sternal border. Regular rate and rhythm. No rubs, or gallops. Distal pulses are 2+ and symmetric. PULMONARY: No evidence of respiratory distress. Lungs clear to auscultation bilaterally. No wheezing, rales or rhonchi. ABDOMINAL: Soft. Non-tender. Non-distended. No rebound or guarding. No organomegaly. Normoactive bowel sounds. MUSCULOSKELETAL Normal range of motion at all joints. No bony deformities or tenderness. No CVA tenderness. EXTREMITIES: + 3+ edema both lower extremities to the knees. No cyanosis. No clubbing. No edema. No calf tenderness. No warmth. SKIN: Warm and dry. Normal capillary refill. No rashes. No jaundice. NEUROLOGICAL: Alert, awake, appropriate. Cranial nerves 2-12 intact. No deficits to light touch and temperature in face, upper extremities and lower extremities. No motor deficits in the in face, upper extremities and lower extremities. Normoreflexic in the upper and lower extremities. Normal speech. Toes are down- going bilaterally. Gait is normal without ataxia. PSYCHIATRIC: Cooperative. Good eye contact. Appropriate mood and affect. <Bettina Frazier - Last Filed: 09/20/18 15:38> - Vital Signs Last Vital Signs Temp Pulse Resp BP Pulse Ox 98.7 F 78 17 190/94 H 96 09/20/18 14:32 09/20/18 14:32 09/20/18 14:32 09/20/18 14:32 09/20/18 14:32 <Hector Rosas - Last Filed: 09/20/18 18:53> Moderate Sedation - Procedure Monitoring Vital Signs: Procedure Monitoring Vital Signs Temperature 98.7 F 09/20/18 14:32 Pulse Rate 78 09/20/18 14:32 Respiratory Rate 17 09/20/18 14:32 Blood Pressure 190/94 H 09/20/18 14:32 O2 Sat by Pulse Oximetry (%) 96 09/20/18 14:32 <Bettina Frazier - Last Filed: 09/20/18 15:38> - Procedure Monitoring Vital Signs: Procedure Monitoring Vital Signs Temperature 98.7 F 09/20/18 14:32 Pulse Rate 78 09/20/18 14:32 Respiratory Rate 17 09/20/18 14:32 Blood Pressure 190/94 H 09/20/18 14:32 O2 Sat by Pulse Oximetry (%) 96 09/20/18 14:32 <Hector Rosas - Last Filed: 09/20/18 18:53> ED Treatment Course - LABORATORY CBC & Chemistry Diagram: 09/20/18 15:25 09/20/18 15:25 <Bettina Frazier - Last Filed: 09/20/18 15:38> - LABORATORY CBC & Chemistry Diagram: 09/20/18 15:25 09/20/18 18:20 <Hector Rosas - Last Filed: 09/20/18 18:53> Medical Decision Making - Medical Decision Making 09/20/18 17:[address] Schmidt by phone. He states that in the past the patient's potassium levels have been in the 2.5-2.9 range on a chronic basis. He agrees with attempted oral replenishment. He will address the underlying cause, which is probably the patient's medication mifepristone. 09/20/18 17:03 Repeat potassium is 2.2. Sugar 231. Otherwise no serious abnormalities of the CBC or chemistries. 09/20/18 18:26 Patient has tolerated 3 oral doses of potassium. EKG shows normal sinus rhythm 79/m. Normal axes and intervals. There are minor nonspecific ST-T wave changes in leads 3 and aVL. There is poor R-wave progression, suggesting possible old anterior infarct, but due to the patient's weight it might be difficult to reproduce exact lead placement. No definite adverse effects of hypokalemia are present 09/20/18 18:30 09/20/18 18:52 Repeat potassium is 3.3. The patient will speak to her entrepreneurship program director tomorrow regarding further potassium supplementation. Asymptomatic, in no distress upon discharge with family to follow-up tomorrow with primary. <Hector Rosas - Last Filed: 09/20/18 18:53> *DC/Admit/Observation/Transfer - Attestations Scribe Attestion: 09/20/18 15:39 Documentation prepared by Bettina Frazier, acting as vice president medical affairs for Hector Baltazar MD <Bettina Frazier - Last Filed: 09/20/18 15:38> - Discharge Dispostion Decision to Admit order: No <Hector Rosas - Last Filed: 09/20/18 18:53> Diagnosis at time of Disposition: Hypokalemia - Discharge Dispostion Disposition: HOME Condition at time of disposition: Improved - Referrals Referrals: Anshul Schmidt MD [Primary Care Provider] - 24 hours - Patient Instructions Printed Discharge Instructions: DI for Hypokalemia Additional Instructions: Discuss supplementary potassium doses with Dr. Schmidt tomorrow. - Post Discharge Activity
[2018-09-20 15:39] LABS: BASO % 0.3 % (0-2.0); EOS % 1.5 % (0-4.5); HEMATOCRIT 45.8 % (32.4-45.2); HEMOGLOBIN 15.3 GM/dl (10.7-15.3); LYMPH % 21.2 % (8-40); MCH 30.8 pg (25.7-33.7); MCHC 33.3 g/dl (32.0-36.0); MEAN CELL VOLUME 92.6 fl (80-96); MEAN PLT VOLUME 9.4 fl (7.5-11.1); MONO % 7.6 % (3.8-10.2); NEUT % 69.4 % (42.8-82.8); PLATELET COUNT 174 K/MM3 (134-434); RBC 4.95 M/mm3 (3.60-5.2); RDW 12.5 % (11.6-15.6); WHITE BLOOD COUNT 7.5 K/mm3 (4.0-10.8)
[2018-09-20] MEDS ORDERED: POTASSIUM CHLORIDE ORAL LIQUID 20 MEQ/15 ML PO ONE ×3 (15:44→17:28)
[2018-09-20 15:52] LABS: ALBUMIN 3.4 g/dl (3.4-5.0); ALK PHOS 74 U/L (45-117); ANION GAP 11 MMOL/L (8-16); BILIRUBIN,TOTAL 0.8 mg/dl (0.2-1); BLOOD UREA NITROGEN 12 mg/dl (7-18); CALCIUM 7.8 mg/dl (8.5-10); CHLORIDE 92 mmol/L (98-107); CO2 34 mmol/L (21-32); CREATININE 0.6 mg/dl (0.55-1.3); GLUCOSE,RANDOM 231 mg/dl (74-106); SGOT/AST 21 U/L (15-37); SGPT/ALT 13 U/L (13-61); SODIUM 137 mmol/L (136-145); TOT PROT 6.3 g/dl (6.4-8.2)
[2018-09-20 15:56] LABS: POTASSIUM 2.2 mmol/L (3.5-5.1)
[2018-09-20] MEDS ORDERED: POTASSIUM CHLORIDE ORAL LIQUID 20 MEQ/15 ML ONE ×2 (15:59→17:29)
[2018-09-20 18:47] LABS: ANION GAP 10 MMOL/L (8-16); BLOOD UREA NITROGEN 12 mg/dl (7-18); CHLORIDE 95 mmol/L (98-107); CO2 33 mmol/L (21-32); CREATININE 0.6 mg/dl (0.55-1.3); GLUCOSE,RANDOM 156 mg/dl (74-106); POTASSIUM 3.3 mmol/L (3.5-5.1); SODIUM 138 mmol/L (136-145)
--- NOTE | 2018-09-21 10:08 | EKG ---
Test Reason : Blood Pressure : / mmHG Vent. Rate : 079 BPM Atrial Rate : 079 BPM P-R Int : 156 ms QRS Dur : 088 ms QT Int : 440 ms P-R-T Axes : 029 001 049 degrees QTc Int : 504 ms NORMAL SINUS RHYTHM POSSIBLE ANTERIOR INFARCT , AGE UNDETERMINED ABNORMAL ECG WHEN COMPARED WITH ECG OF 15-JUL-2018 09:24, NO SIGNIFICANT CHANGE WAS FOUND Confirmed by WILLIAM PACKER MD ([id number]) on 09/21/2018 10:07:23 AM Referred By: Confirmed By:WILLIAM PACKER MD
== END 2018-09-20 18:59 | disposition home or self-care (01) ==
LOC: FER 14:10
DX: E87.6 Hypokalemia (principal); E11.9 Type 2 diabetes mellitus without complications; Z86.718 Personal history of other venous thrombosis and embolism; I25.10 Atherosclerotic heart disease of native coronary artery without angina pectoris; Z95.5 Presence of coronary angioplasty implant and graft
CPT/HCPCS: 36415; 80048; 80053; 85025; 93005; 99283-25

== ENCOUNTER 2020-09-22 11:21 | Emergency (ER) | payer BC ==
[2020-09-22 11:44] VITALS: TEMP 98; BMI 36.5
[2020-09-22 12:34] LABS: BASO % 0.3 % (0-2.0); EOS % 2.2 % (0-4.5); HEMATOCRIT 47.3 % (32.4-45.2); HEMOGLOBIN 16.5 GM/dL (10.7-15.3); LYMPH % 19.3 % (8-40); MCH 31.8 pg (25.7-33.7); MEAN CELL VOLUME 90.9 fl (80-96); MEAN PLT VOLUME 9.6 fl (7.5-11.1); MONO % 6.9 % (3.8-10.2); NEUT % 71.3 % (42.8-82.8); PLATELET COUNT 203 K/MM3 (134-434); RDW 12.8 % (11.6-15.6); WHITE BLOOD COUNT 8.2 K/mm3 (4.0-10.0)
[2020-09-22 13:06] LABS: CHLORIDE 104 mmol/L (98-107); POTASSIUM 4.2 mmol/L (3.5-5.1); SODIUM 139 mmol/L (136-145)
[2020-09-22 13:08] LABS: ALBUMIN 3.7 g/dl (3.4-5.0); ANION GAP 3 MMOL/L (8-16); BLOOD UREA NITROGEN 14.9 mg/dL (7-18); CALCIUM 8.6 mg/dL (8.5-10.1); CO2 32 mmol/L (21-32)
[2020-09-22 13:09] LABS: GLUCOSE,RANDOM 111 mg/dL (74-106)
[2020-09-22 13:11] LABS: SGPT/ALT 16 U/L (13-61)
[2020-09-22 13:12] LABS: CREATININE 0.7 mg/dL (0.55-1.3); SGOT/AST 11 U/L (15-37)
[2020-09-22 13:13] LABS: BILIRUBIN,TOTAL 0.3 mg/dL (0.2-1); TOT PROT 6.8 g/dl (6.4-8.2)
[2020-09-22 13:14] LABS: ALK PHOS 98 U/L (45-117)
[2020-09-22 14:08] VITALS: BP 124/70; PULSE 88
== END 2020-09-22 17:00 | disposition home or self-care (01) ==
LOC: JER 11:21
DX: M79.601 Pain in right arm (principal); M25.521 Pain in right elbow
CPT/HCPCS: 36415; 71046-TC-FY; 73030-TC-RT-FY; 73060-TC-RT-FY; 80053; 82550; 84484; 85025; 93005; 93010; 99285-25

== ENCOUNTER 2022-10-03 17:48 | Emergency (ER) | payer BC ==
[2022-10-03 17:56] VITALS: BP 170/77; PULSE 76; RESP 18; TEMP 97.9; BMI 42.5
[2022-10-03] MEDS ORDERED: SODIUM CHLORIDE 0.9% 500 ML INFUS.BAG IV ONE (18:05)
[2022-10-03 20:17] LABS: CALCIUM 8.4 mg/dL (8.5-10.1)
[2022-10-03 20:18] LABS: BLOOD UREA NITROGEN 14.1 mg/dL (7-18); MAGNESIUM 1.9 mg/dL (1.8-2.4)
[2022-10-03 20:21] LABS: CREATININE 0.7 mg/dL (0.55-1.3)
[2022-10-03 20:42] LABS: BASO % 0.4 % (0-2.0); EOS % 1.9 % (0-4.5); HEMATOCRIT 49.6 % (32.4-45.2); HEMOGLOBIN 17.2 GM/dL (10.7-15.3); LYMPH % 19.8 % (8-40); MCH 32.6 pg (25.7-33.7); MCHC 34.7 g/dl (32.0-36.0); MEAN CELL VOLUME 93.9 fl (80-96); MEAN PLT VOLUME 9.3 fl (7.5-11.1); MONO % 7.2 % (3.8-10.2); NEUT % 70.7 % (42.8-82.8); PLATELET COUNT 222 10^3/uL (134-434); RBC 5.29 M/mm3 (3.60-5.2); WHITE BLOOD COUNT 9.1 K/mm3 (4.0-10.0)
[2022-10-03 21:26] LABS: N-TERMINAL BNP 106.5 pg/ml (5-125)
[2022-10-03 21:30] LABS: ALBUMIN 3.5 g/dl (3.4-5.0)
[2022-10-03 21:33] LABS: BILIRUBIN,DIRECT 0.2 mg/dL (0.0-0.2)
[2022-10-03 21:35] LABS: BILIRUBIN,TOTAL 0.5 mg/dL (0.2-1); TOT PROT 6.9 g/dl (6.4-8.2)
== END 2022-10-03 23:42 | disposition home or self-care (01) ==
LOC: JER 17:48
DX: R60.0 Localized edema (principal)
CPT/HCPCS: 36415; 71046-TC-FY; 80048; 80076; 83735; 83880; 84484; 85025; 93005; 93010; 93970-TC; 99285-25